=== PATIENT | female | born 1980 | race Two or more races ===

== ENCOUNTER 2021-08-25 13:50 | Outpatient (REF) | payer OTHER, SELFPAY ==
--- NOTE | ~2021-08-25 | MR_ITS ---
EXAMINATION: MR CERVICAL SPINE WITHOUT AND WITH CONTRAST CLINICAL INFORMATION: Myelopathy. Intense cervical pain. COMPARISON: None TECHNIQUE: MRI of the cervical spine was obtained using routine sequences with and without contrast. Intravenous contrast: Gadavist 9 mL. FINDINGS: VERTEBRAL BODIES AND PARASPINAL SOFT TISSUES: The marrow signal is within normal limits. There are no compression fractures. Mild rightward curvature of the cervical spine evident. No marrow or soft tissue edema is seen. No pathologic enhancement identified. The paraspinal soft tissues appear normal. The vertebral artery flow-voids are maintained. The imaged lung apices are grossly clear. CERVICOMEDULLARY JUNCTION AND VISUALIZED POSTERIOR FOSSA: The craniovertebral junction and imaged portions of the brain parenchyma appear normal. No cord signal abnormality or syrinx is identified. No abnormal intradural enhancement visible. SPINAL LEVELS: C2-C3: No disc pathology, central canal stenosis, or foraminal narrowing. C3-C4: Uncovertebral joint spurring and mild disc bulge with mild central canal stenosis. Patent foramina. C4-C5: Slight retrosubluxation and disc bulge with endplate spurring. Mild central canal stenosis and mild left foraminal narrowing. C5-C6: Minimal annular bulge without central canal stenosis. Mild bilateral foraminal narrowing and endplate spurring. C6-C7: Posterior disc bulge and uncovertebral joint spurring with facet arthropathy contributing to mild cord deformity and moderate central canal stenosis with [id number] bilateral foraminal encroachment. C7-T1: No disc abnormality. Patent central canal and foramina. MR/MR cervical spine wo/w con IMPRESSION: Moderate central canal stenosis due to spondylitic changes at the C6-C7 level with [id number] bilateral foraminal narrowing. Mild central canal stenosis at the C3-C4 and C4-C5 levels. No cord signal abnormality. No pathologic enhancement.
== END 2021-08-25 13:51 | disposition home or self-care (01) ==
LOC: HO.MRI 13:50
PROVIDERS: Visit Provider Psychiatry & Neurology Neurology
DX: G95.9 Disease of spinal cord, unspecified (principal)
CPT/HCPCS: 72156; A9585